=== PATIENT | female | born 1995 | race Caucasian/White ===

== ENCOUNTER 2016-12-24 12:34 | Emergency (ER) | payer OTHER ==
[~2016-12-24] VITALS: Ht 170.2 cm; Wt 97.5 kg
[2016-12-24 12:35] VITALS: BP 138/88
[2016-12-24] MEDS ORDERED: PRENTAB7 PO (12:40)
== END 2016-12-24 14:47 | disposition left against medical advice (07) ==
LOC: M ED 14:35
DX: O20.9 Hemorrhage in early pregnancy, unspecified (principal); Z3A.12 12 weeks gestation of pregnancy; Z53.21 Procedure and treatment not carried out due to patient leaving prior to being seen by health care provider

== ENCOUNTER 2017-01-22 01:29 | Emergency (ER) | payer OTHER ==
[~2017-01-22] VITALS: Ht 170.2 cm; Wt 91.2 kg
[~2017-01-22 01:29] MED LIST: PRENTAB7 PO
[2017-01-22 02:51] VITALS: BP 136/74
--- NOTE | 2017-01-22 03:00 | REPUSA ---
CLINICAL HISTORY: Edema. COMMENTS: Real time sonography with duplex doppler of the left lower extremity was performed with attention to the major deep venous structures. Evaluation reveals the left common femoral, superficial femoral and popliteal veins to be completely compressible without intraluminal thrombus. There is normal spontaneous phasic flow and augmentation. The greater saphenous/common femoral vein junction is patent. IMPRESSION: No evidence of DVT in left lower extremity. Thank you for your kind referral of this patient.
== END 2017-01-22 02:54 | disposition home or self-care (01) ==
LOC: M ED 02:50
DX: R25.2 Cramp and spasm (principal); F17.210 Nicotine dependence, cigarettes, uncomplicated

== ENCOUNTER → 2017-02-22 | Outpatient (CLI) | payer OTHER | LOC: M LAB 16:19 | PROVIDERS: ATTEND Physician Assistant | DX: Z02.1 Encounter for pre-employment examination (principal) ==

== ENCOUNTER → 2017-03-05 | Outpatient (CLI) | payer OTHER ==
--- NOTE | 2017-03-06 05:42 | REP ---
Clinical: Right upper quadrant abdominal pain. Technique: Neves scale ultrasound using curved array transducer. Findings: The liver and pancreas are normal in contour, size, and echogenicity without focal hepatic or pancreatic lesions identified. The gallbladder is normal without gallstones, wall thickening or pericholecystic fluid. No biliary ductal dilatation is appreciated, and the common bile duct measures 5.2 mm diameter. The right kidney is normal in reniform shape without hydronephrosis and measures 10.1 x 5.3 x 4.6 cm. No ascites. Visualized portions of the abdominal aorta normal. Impression: Normal right upper quadrant and gallbladder abdominal ultrasound. Signed by Lucian Lopez MD 03/06/2017 05:34 A
== END ==
LOC: M RAD 08:24
PROVIDERS: ATTEND Physician Assistant
DX: R10.11 Right upper quadrant pain (principal)

== ENCOUNTER 2018-01-11 13:34 | Emergency (ER) | payer OTHER | END 2018-01-11 16:12 | disposition home or self-care (01) | LOC: M ED 13:34 | DX: K04.7 Periapical abscess without sinus (principal); R22.0 Localized swelling, mass and lump, head; R68.84 Jaw pain; F17.200 Nicotine dependence, unspecified, uncomplicated | CPT/HCPCS: 81025 ==

== ENCOUNTER 2018-03-04 13:41 | Emergency (ER) | payer SELFPAY, OTHER | END 2018-03-04 16:15 | disposition left against medical advice (07) | LOC: M ED 13:41 | DX: Z53.29 Procedure and treatment not carried out because of patient's decision for other reasons (principal) ==

== ENCOUNTER 2018-07-07 10:45 | Emergency (ER) | payer SELFPAY, MEDICAID, OTHER | END 2018-07-07 11:26 | disposition home or self-care (01) | LOC: M ED 10:45 | DX: K02.9 Dental caries, unspecified (principal); S02.5XXA Fracture of tooth (traumatic), initial encounter for closed fracture; X58.XXXA Exposure to other specified factors, initial encounter; Y92.89 Other specified places as the place of occurrence of the external cause; F17.210 Nicotine dependence, cigarettes, uncomplicated | CPT/HCPCS: 99283 ==

== ENCOUNTER 2018-08-18 19:35 | Emergency (ER) | payer SELFPAY | END 2018-08-18 20:51 | disposition home or self-care (01) | LOC: M ED 19:35 | DX: S46.912A Strain of unspecified muscle, fascia and tendon at shoulder and upper arm level, left arm, initial encounter (principal); X58.XXXA Exposure to other specified factors, initial encounter; Y92.89 Other specified places as the place of occurrence of the external cause; Y99.0 Civilian activity done for income or pay | CPT/HCPCS: 99283 ==

== ENCOUNTER 2018-10-09 13:05 | Emergency (ER) | payer SELFPAY ==
[~2018-10-09] VITALS: Ht 170.2 cm; Wt 89.1 kg
[~2018-10-09 13:05] MED LIST changes: +CLEO300C2 PO; +CYCL10TA PO; +IBUP-1022 PO; +IBUP80TA PO; +LIDVISCBTL SSP; +MAGICMW SSP; +NAPR-885 PO; +NORCOTAB PO; +PERC5TAB12 PO
[2018-10-09] MEDS ORDERED: CIPR-249 PO (16:02)
[2018-10-09] MEDS ORDERED: NORCOTAB PO (16:02)
--- NOTE | 2018-10-09 16:02 | REP ---
PELVIC ULTRASOUND: Real-time sonographic evaluation of the pelvis performed utilizing transabdominal and endovaginal technique. The bladder measures 5.8 x 6.6 x 7.6 cm. Uterus measures 7.3 x 2.8 x 3.5 cm. Endometrial thickness is 3 mm. There is no endometrial fluid collection. Right ovary measures 4.0 x 3.8 x 3.4 cm and left ovary 4.2 x 2.1 x 3.1 cm. There is a cyst of the right ovary 2.8 x 3.2 x 2.6 cm. There is no other evidence of adnexal mass or free fluid. There is no torsion of either ovary with duplex Doppler evaluation, RI right ovary 0.36 and left ovary 0.56. IMPRESSION: There is a right ovarian cyst 3.2 cm in maximum diameter. There is no torsion or free fluid. Electronically Signed by Marcos Neves MD 10/09/2018 07:56 P
[2018-10-09 16:15] VITALS: BP 126/75
== END 2018-10-09 16:16 | disposition home or self-care (01) ==
LOC: M ED 13:05
DX: N30.91 Cystitis, unspecified with hematuria (principal); N83.201 Unspecified ovarian cyst, right side; F17.210 Nicotine dependence, cigarettes, uncomplicated

== ENCOUNTER → 2019-01-29 | Outpatient (REF) | payer MEDICAID ==
[~2019-01-29] MED LIST changes: +CIPR-249 PO; +HYDR-3715 PO; -NORCOTAB PO
== END ==
LOC: M LAB REF 12:59
PROVIDERS: ATTEND Specialist
DX: Z12.4 Encounter for screening for malignant neoplasm of cervix (principal)

== ENCOUNTER → 2019-03-03 | Outpatient (REF) | payer MEDICAID | LOC: M LAB REF 17:29 | PROVIDERS: ATTEND Specialist | DX: R87.612 Low grade squamous intraepithelial lesion on cytologic smear of cervix (LGSIL) (principal) ==

== ENCOUNTER → 2022-10-18 | Outpatient (REF) | payer OTHER, MEDICAID ==
[~2022-10-18] MED LIST changes: +CYCL-707 PO; -CYCL10TA PO
== END ==
LOC: M SFHCWAGY 12:48
PROVIDERS: ATTEND Nurse Practitioner Family
DX: Z12.4 Encounter for screening for malignant neoplasm of cervix (principal)

== ENCOUNTER → 2022-11-15 | Outpatient (CLI) | payer OTHER | LOC: M RAD 08:13 | PROVIDERS: ATTEND Nurse Practitioner Family | DX: F52.6 Dyspareunia not due to a substance or known physiological condition (principal) ==

== ENCOUNTER → 2023-10-02 | Outpatient (REF) | payer OTHER | LOC: M LAB REF 12:15 | PROVIDERS: ATTEND Physician Assistant | DX: B34.9 Viral infection, unspecified (principal) ==

== ENCOUNTER → 2024-01-22 | Outpatient (REF) | payer BC ==
[2024-01-22 13:08] LABS: APPEARANCE, URINE HAZY (CLEAR); BACTERIA, URINE AUTO NEGATIVE (NEGATIVE); BILIRUBIN, URINE AUTO NEGATIVE (NEGATIVE); BLOOD, URINE BLOOD NEGATIVE (NEGATIVE); COLOR, URINE YELLOW (YELLOW); GLUCOSE, URINE (UA) AUTO NEGATIVE (NEGATIVE); KETONE, URINE AUTO NEGATIVE (NEGATIVE); LEUKOCYTE ESTERASE, URINE AUTO NEGATIVE (NEGATIVE); NITRITE, URINE AUTO NEGATIVE (NEGATIVE); PROTEIN, URINE AUTO NEGATIVE (NEGATIVE); RBC, URINE AUTO 0 /HPF (0-3); SPECIFIC GRAVITY URINE AUTO 1.023 (1.002-1.035); SQUAMOUS EPITHELIAL CELL UR AU 3 /HPF (0-6); WBC, URINE AUTO 0 /HPF (0-3)
== END ==
LOC: M LAB REF 12:29
PROVIDERS: ATTEND Physician Assistant Medical
DX: N39.0 Urinary tract infection, site not specified (principal)